=== PATIENT | male | born 2000 | race African-American/Black ===

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

== ENCOUNTER 2019-06-02 20:27 | Emergency (ER) | payer MEDICAID, OTHER ==
[~2019-06-02] VITALS: Ht 170.2 cm; Wt 65.5 kg
[2019-06-02 20:38] VITALS: BP 142/85
[2019-06-02 21:00] VITALS: BP 142/85
== END 2019-06-02 21:00 | disposition home or self-care (01) ==
LOC: MED 20:27
DX: S61.217A Laceration without foreign body of left little finger without damage to nail, initial encounter (principal); Z88.8 Allergy status to other drugs, medicaments and biological substances; W23.0XXA Caught, crushed, jammed, or pinched between moving objects, initial encounter; Y93.89 Activity, other specified; Y92.89 Other specified places as the place of occurrence of the external cause; Y99.8 Other external cause status
CPT/HCPCS: 12001; 99283

== ENCOUNTER 2019-06-02 23:50 | Emergency (ER) | payer OTHER ==
[~2019-06-02] VITALS: Ht 170.2 cm; Wt 65.3 kg
[2019-06-03 00:06] VITALS: BP 120/63
--- NOTE | 2019-06-03 00:19 | NUR ---
18 Y/O M PT PRESENTS TO ER C/O LACERATION ON LEFT HAND, FIFTH DIGIT. PER PT HE WAS WORKING ON A CAR AND TURNED THE WRENCH AND IT CUT HIS FINGER. LACERATION IS 1CM, BLEEDING IS CONTROLLED. PAIN LEVEL 1/10, THROBBING, ONLY FEELS IT WHEN HES MOVING FINGER. ALLERGIES: MOTRIN. NO MED HX. SAFETY MEASURES IN PLACE. WAITING FOR ERMD TO EVALUATE PT.
[2019-06-03 01:00] VITALS: BP 117/72
--- NOTE | 2019-06-03 01:00 | NUR ---
Patient discharged with v/s stable. Written and verbal after care instructions given and explained. Patient verbalized understanding. Ambulatory with steady gait. All questions addressed prior to discharge. Advised to follow up with PMD.
== END 2019-06-03 01:00 | disposition home or self-care (01) ==
LOC: MED 23:50
DX: S61.217D Laceration without foreign body of left little finger without damage to nail, subsequent encounter (principal); Z88.8 Allergy status to other drugs, medicaments and biological substances; X58.XXXD Exposure to other specified factors, subsequent encounter
CPT/HCPCS: 12001; 99283

== ENCOUNTER 2019-06-06 22:33 | Emergency (ER) | payer OTHER ==
--- NOTE | 2019-06-06 22:52 | NUR ---
PER ADMITTING PT LEFT , DID NOT WANT TO WAIT.
== END 2019-06-06 22:52 | disposition left against medical advice (07) ==
LOC: MED 22:33
DX: Z53.21 Procedure and treatment not carried out due to patient leaving prior to being seen by health care provider (principal)